=== PATIENT | male | born 1965 | race Caucasian/White ===

== ENCOUNTER 2023-11-05 22:32 | Emergency (ER) | payer MEDICAID ==
[~2023-11-05] VITALS: Ht 182.9 cm; Wt 81.6 kg
[2023-11-05] MEDS ORDERED: KETOROLAC TROMETHAMINE INJ 30 MG/ML VIAL ONE (22:44)
[2023-11-05] MEDS: KETOROLAC TROMETHAMINE INJ 60 MG/2 ML VIAL IM ONE (22:44)
[2023-11-05] MEDS ORDERED: NAPR-1009 PO (23:49)
[2023-11-05] MEDS ORDERED: ONDANSETRON 4 MG TAB.RAPDIS ONE (23:53)
[2023-11-05] MEDS ORDERED: MORPHINE SULFATE INJ 4 MG/ML DISP.SYRIN ONE (23:53)
[2023-11-05] MEDS: MORPHINE SULFATE INJ 2 MG/ML DISP.SYRIN IM ONE (23:59)
[2023-11-06] MEDS: ONDANSETRON 4 MG TAB.RAPDIS PO ONE
[2023-11-06 00:02] VITALS: BP 132/68; TEMP 98.1; O2SAT 98
== END 2023-11-06 00:03 | disposition home or self-care (01) ==
LOC: ER 22:44
DX: S82.434A Nondisplaced oblique fracture of shaft of right fibula, initial encounter for closed fracture (principal); M79.661 Pain in right lower leg; W01.0XXA Fall on same level from slipping, tripping and stumbling without subsequent striking against object, initial encounter; Y93.89 Activity, other specified; Y92.89 Other specified places as the place of occurrence of the external cause; Y99.8 Other external cause status
CPT/HCPCS: 29505; 73590; 96372; 99284; J1885; J2270; Q0162

== ENCOUNTER 2023-11-14 07:24 | Emergency (ER) | payer MEDICAID ==
[~2023-11-14] VITALS: Ht 182.9 cm; Wt 81.6 kg
[~2023-11-14 07:24] MED LIST: NAPR-1009 PO
[2023-11-14 07:40] VITALS: BP 154/90; TEMP 98
[2023-11-14] MEDS ORDERED: TRAM50TA2 PO (08:10)
[2023-11-14 08:13] VITALS: O2SAT 99
== END 2023-11-14 08:17 | disposition home or self-care (01) ==
LOC: ER 07:39
DX: S82.491A Other fracture of shaft of right fibula, initial encounter for closed fracture (principal); Z79.899 Other long term (current) drug therapy; Z60.2 Problems related to living alone; W10.8XXA Fall (on) (from) other stairs and steps, initial encounter; Y93.89 Activity, other specified; Y92.89 Other specified places as the place of occurrence of the external cause; Y99.8 Other external cause status

== ENCOUNTER 2023-11-22 02:53 | Emergency (ER) | payer MEDICAID ==
[~2023-11-22] VITALS: Ht 182.9 cm; Wt 90.7 kg
[~2023-11-22 02:53] MED LIST changes: +TRAM50TA2 PO
[2023-11-22] MEDS ORDERED: TRAM50TA2 PO (03:20)
[2023-11-22] MEDS ORDERED: ZOLP10TA2 PO (03:20)
[2023-11-22] MEDS ORDERED: KETO10TA2 PO (03:20)
[2023-11-22 03:21] VITALS: BP 127/77; TEMP 98; O2SAT 99
== END 2023-11-22 03:28 | disposition home or self-care (01) ==
LOC: ER 02:57
DX: S82.491A Other fracture of shaft of right fibula, initial encounter for closed fracture (principal); Z79.899 Other long term (current) drug therapy; Z60.2 Problems related to living alone; W01.0XXA Fall on same level from slipping, tripping and stumbling without subsequent striking against object, initial encounter; Y93.89 Activity, other specified; Y92.89 Other specified places as the place of occurrence of the external cause; Y99.8 Other external cause status

== ENCOUNTER 2023-11-30 20:54 | Emergency (ER) | payer MEDICAID ==
[~2023-11-30] VITALS: Ht 182.9 cm; Wt 81.6 kg
[~2023-11-30 20:54] MED LIST changes: +KETO10TA2 PO; +ZOLP10TA2 PO
[2023-11-30 22:49] VITALS: BP 134/68; TEMP 98; O2SAT 98
[2023-11-30] MEDS ORDERED: KETOROLAC TROMETHAMINE INJ 30 MG/ML VIAL ONE (23:46)
[2023-11-30] MEDS: KETOROLAC TROMETHAMINE INJ 30 MG/ML VIAL IM ONE (23:59)
== END 2023-12-01 | disposition left against medical advice (07) ==
LOC: ER 20:56
DX: S82.491D Other fracture of shaft of right fibula, subsequent encounter for closed fracture with routine healing (principal); Z60.2 Problems related to living alone; W18.39XD Other fall on same level, subsequent encounter
CPT/HCPCS: 99283; 73590; J1885

== ENCOUNTER 2023-12-18 22:42 | Emergency (ER) | payer MEDICAID ==
[~2023-12-18] VITALS: Ht 175.3 cm; Wt 81.6 kg
[2023-12-19 00:20] VITALS: BP 127/71; TEMP 98; O2SAT 99
== END 2023-12-19 01:45 | disposition left against medical advice (07) ==
LOC: ER 22:47
DX: M79.604 Pain in right leg (principal); Z79.899 Other long term (current) drug therapy; Z60.2 Problems related to living alone; Z53.21 Procedure and treatment not carried out due to patient leaving prior to being seen by health care provider

== ENCOUNTER 2024-02-14 07:36 | Emergency (ER) | payer MEDICAID ==
[~2024-02-14] VITALS: Ht 182.9 cm; Wt 108.9 kg
[2024-02-14] MEDS ORDERED: OXYC-128 PO (08:49)
[2024-02-14 08:56] VITALS: BP 116/70; TEMP 98.3; O2SAT 98
== END 2024-02-14 08:57 | disposition home or self-care (01) ==
LOC: ER 07:38
DX: S82.401D Unspecified fracture of shaft of right fibula, subsequent encounter for closed fracture with routine healing (principal); W34.010D Accidental discharge of airgun, subsequent encounter
CPT/HCPCS: 73610-TC

== ENCOUNTER 2024-02-23 21:51 | Emergency (ER) | payer MEDICAID ==
[~2024-02-23 21:51] MED LIST changes: +OXYC-128 PO
== END 2024-02-23 23:03 | disposition left against medical advice (07) ==
LOC: ER 21:53
DX: S80.929A Unspecified superficial injury of unspecified lower leg, initial encounter (principal); Z53.21 Procedure and treatment not carried out due to patient leaving prior to being seen by health care provider; X58.XXXA Exposure to other specified factors, initial encounter; Y93.89 Activity, other specified; Y92.89 Other specified places as the place of occurrence of the external cause; Y99.8 Other external cause status

== ENCOUNTER 2024-02-28 19:44 | Emergency (ER) | payer MEDICAID ==
[~2024-02-28] VITALS: Ht 182.9 cm; Wt 86.2 kg
[2024-02-28 19:53] VITALS: BP 165/103; TEMP 98.5; O2SAT 98
[2024-02-28] MEDS ORDERED: HYDROCODONE/APAP 10/325MG TABLET ONE (20:08)
[2024-02-28] MEDS: HYDROCODONE/APAP 10/325MG TABLET PO ONE (20:13)
== END 2024-02-28 20:14 | disposition left against medical advice (07) ==
LOC: ER 19:45
DX: G89.29 Other chronic pain (principal); M25.571 Pain in right ankle and joints of right foot; Z60.2 Problems related to living alone

== ENCOUNTER 2024-06-14 17:25 | Emergency (ER) | payer MEDICAID ==
[~2024-06-14] VITALS: Ht 182.9 cm; Wt 86.2 kg
[2024-06-14 17:31] VITALS: BP 119/96; TEMP 98.2
[2024-06-14] MEDS ORDERED: IBUP-1490 PO (17:55)
[2024-06-14] MEDS ORDERED: CYCL10TA9 PO (17:55)
[2024-06-14] MEDS ORDERED: KETOROLAC TROMETHAMINE 15 MG/ML VIAL ONE (17:59)
[2024-06-14] MEDS: KETOROLAC TROMETHAMINE 15 MG/ML VIAL IM ONE (18:03)
[2024-06-14 18:05] VITALS: O2SAT 98
== END 2024-06-14 18:09 | disposition home or self-care (01) ==
LOC: ER 17:29
DX: M54.9 Dorsalgia, unspecified (principal); Z87.39 Personal history of other diseases of the musculoskeletal system and connective tissue; Z60.2 Problems related to living alone
CPT/HCPCS: 99283; 96372; J1885

== ENCOUNTER 2024-06-26 21:11 | Emergency (ER) | payer OTHER, MEDICAID ==
[~2024-06-26 21:11] MED LIST changes: +CYCL10TA9 PO; +IBUP-1490 PO
== END 2024-06-26 21:50 | disposition left against medical advice (07) ==
LOC: ER 21:15
DX: Z04.1 Encounter for examination and observation following transport accident (principal); Z53.21 Procedure and treatment not carried out due to patient leaving prior to being seen by health care provider

== ENCOUNTER 2024-06-27 04:49 | Emergency (ER) | payer OTHER, MEDICAID ==
[~2024-06-27] VITALS: Ht 182.9 cm; Wt 99.8 kg
[2024-06-27 05:42] VITALS: BP 150/85; TEMP 98; O2SAT 99
== END 2024-06-27 06:24 | disposition left against medical advice (07) ==
LOC: ER 04:49
DX: Z04.1 Encounter for examination and observation following transport accident (principal); Z53.21 Procedure and treatment not carried out due to patient leaving prior to being seen by health care provider
CPT/HCPCS: 71100-TC